=== PATIENT | male | born 2000 | race Caucasian/White ===

== ENCOUNTER 2019-08-05 08:39 | Day surgery (SDC) | payer OTHER ==
[~2019-08-05] VITALS: Ht 177.8 cm; Wt 75.7 kg
[2019-08-05] MEDS ORDERED: LACTATED RINGERS 1,000 ML IV SCH (09:41)
[2019-08-05] MEDS ORDERED: NONE PER PT (09:44)
[2019-08-05] MEDS ORDERED: MIDAZOLAM 1 MG/ML, 2ML ONE (09:50)
[2019-08-05] MEDS ORDERED: FENTANYL PF 100 MCG/2ML ONE ×2 (09:50→11:08)
[2019-08-05 09:58] VITALS: BP 130/91
[2019-08-05] MEDS ORDERED: OXYMETAZOLINE NASAL SPRAY 0.05%, 15ML ONE (10:15)
[2019-08-05] MEDS ORDERED: COCAINE TOPICAL SOLN 4%, 4ML ONE (10:15)
[2019-08-05] MEDS ORDERED: LIDOCAINE 1%-EPI 1:100K, 20ML ONE (10:16)
[2019-08-05] MEDS ORDERED: PROPOFOL 10 MG/ML, 20ML ONE (10:18)
[2019-08-05] MEDS ORDERED: DEXAMETHASONE 4 MG/ML, 1ML ONE (10:18)
[2019-08-05] MEDS ORDERED: ONDANSETRON 2MG/ML, 2ML ONE (10:18)
[2019-08-05] MEDS ORDERED: PROMETHAZINE 25 MG/ML, 1ML IV PRN (11:00)
[2019-08-05] MEDS ORDERED: ACETAMINOPHEN 325 MG TABLET PO PRN (11:00)
[2019-08-05] MEDS ORDERED: MEPERIDINE/PF 25MG/ML,1ML IVPush PRN (11:00)
[2019-08-05] MEDS ORDERED: FENTANYL PF 100 MCG/2ML IV PRN (11:00)
[2019-08-05] MEDS ORDERED: HYDROmorphone 1 MG/ML, 1ML INJ IVPush PRN (11:00)
[2019-08-05] MEDS ORDERED: ONDANSETRON 2MG/ML, 2ML IV PRN (11:00)
[2019-08-05] MEDS ORDERED: OXYcodone 5 MG/5 ML ORAL.SOL UDC ONE (11:08)
[2019-08-05] MEDS: OXYcodone 5 MG/5 ML ORAL.SOL UDC PO PRN ×2 (11:18→12:21)
== END 2019-08-05 12:45 | disposition home or self-care (01) ==
LOC: OUT 08:39
PROVIDERS: ATTEND Otolaryngology Facial Plastic Surgery
DX: S02.2XXA Fracture of nasal bones, initial encounter for closed fracture (principal); Y04.2XXA Assault by strike against or bumped into by another person, initial encounter; Y93.89 Activity, other specified; Y92.481 Parking lot as the place of occurrence of the external cause; Y99.8 Other external cause status
CPT/HCPCS: 21320; J1100; J2250; J2405; J2704; J3010; J3490; J7120